=== PATIENT | male | born 1995 | race Caucasian/White ===

== ENCOUNTER 2019-02-15 12:21 | Emergency (ER) | payer MEDICAID, OTHER, SELFPAY ==
[~2019-02-15] VITALS: Ht 154.9 cm; Wt 63.8 kg
[2019-02-15 12:34] VITALS: BP 121/64
== END 2019-02-15 13:36 | disposition home or self-care (01) ==
LOC: ED 13:31
DX: G24.3 Spasmodic torticollis (principal); M54.2 Cervicalgia; F17.200 Nicotine dependence, unspecified, uncomplicated
CPT/HCPCS: 96372; 99283; J1885

== ENCOUNTER 2019-09-30 21:59 | Emergency (ER) | payer SELFPAY ==
[~2019-09-30] VITALS: Ht 154.9 cm; Wt 70.7 kg
[2019-09-30 22:04] VITALS: BP 148/95
== END 2019-09-30 22:48 | disposition home or self-care (01) ==
LOC: ED 22:32
DX: J06.9 Acute upper respiratory infection, unspecified (principal); Z00.00 Encounter for general adult medical examination without abnormal findings
CPT/HCPCS: 99281